=== PATIENT | male | born 1965 | race Caucasian/White ===

== ENCOUNTER → 2018-03-23 | Day surgery (SDC) | payer OTHER ==
[~2018-03-23] VITALS: Ht 182.9 cm; Wt 100.6 kg
[~2018-03-23] MED LIST: BUPIVACAINE/EPINEPHRINE 0.5% PF 10 ML VIAL ONE; CHLORHEXIDINE GLUCONATE 2 % 1 PACK (2 CLOTHS) TOPICAL PRN; DEXAMETHASONE SOD PHOS 4 MG/ML VIAL IV ONE; DO NOT ADM ANY ANTICOAGULANT DRUGS PRN; DOCUSATE SODIUM 100 MG CAP PO ONE; GLYCOPYRROLATE 1 MG/5 ML SYRINGE IV PUSH ONE; INSULIN HUMAN REGULAR 1,000 UNITS/10 ML VIAL SQ PRN; KETOROLAC TROMETHAMINE 30 MG/ML (IVP) VIAL IV PUSH ONE; LACTATED RINGER'S 1000 ML INJ 1,000 ML IV ONE; LACTATED RINGER'S 1000 ML IV PRN; LIDOCAINE 1%/EPINEPHrine 1:100,000 SOLN 20 ML VIAL ONE; LIDOCAINE HCL 1% PF 5 ML SYRINGE OTHER ONE; LORazepam 2 MG/ML VIAL IV ONE; LORazepam 2 MG/ML VIAL ONE; METOPROLOL TARTRATE 25 MG TAB PO PRN; MIDAZOLAM HCL 2 MG/2 ML VIAL ONE; NEOSTIGMINE 5 MG/5 ML SYRINGE IV PUSH ONE; ONDANSETRON HCL 4 MG/2 ML VIAL IV PUSH ONE; POVIDONE IODINE 5% (ANTISEPSIS KIT) 4 APPLICATIONS EACH NARE PRN; PROPOFOL 200 MG/20 ML AMP IV ONE; ROCURONIUM INJ 50 MG/5 ML SYRINGE IV PUSH ONE; SODIUM CHLORID 0.9% 500 ML IV PRN; SUCCINYLCHOLINE CHLORIDE 100 MG/5 ML SYRINGE IV PUSH ONE; VANCOMYCIN 1 GM/200 ML PREMIX IV SCH; VECURONIUM BROMIDE 20 MG VIAL IV ONE; oxyCODONE/ACETAMINOPHEN 5 MG/325 MG TAB PO ONE
[2018-03-23 12:36] LABS: AUTOMATED NEUTROPHIL # 3.1 TH/MM3 (1.8-7.7); BASOPHIL % 0.6 % (0.0-2.0); EOSINOPHIL # 0.3 TH/MM3 (0-0.4); EOSINOPHIL % 4.9 % (0.0-4.0); HEMATOCRIT 43.6 % (39.0-51.0); LYMPH % 28.1 % (9.0-44.0); LYMPHOCYTE # 1.5 TH/MM3 (1.0-4.8); MEAN CELL VOLUME 91.3 FL (80.0-100.0); MEAN CORPUSCULAR HEMOGLOBIN 31.4 PG (27.0-34.0); MEAN CORPUSCULAR HGB CONC 34.4 % (32.0-36.0); MEAN PLATELET VOLUME 7.1 FL (7.0-11.0); MONO % 8.3 % (0.0-8.0); MONOCYTE # 0.4 TH/MM3 (0-0.9); NEUT % 58.1 % (16.0-70.0); PLATELET COUNT 189 TH/MM3 (150-450); RED BLOOD COUNT 4.78 MIL/MM3 (4.50-5.90); RED CELL DISTRIBUTION WIDTH 13.2 % (11.6-17.2); WHITE BLOOD COUNT 5.3 TH/MM3 (4.0-11.0)
[2018-03-23 13:00] LABS: BICARBONATE 24.3 MEQ/L (21.0-32.0); CALCIUM 8.9 MG/DL (8.5-10.1); CREATININE 0.88 MG/DL (0.60-1.30)
--- NOTE | 2018-03-23 16:37 | HHI.PR ---
Immediate Post Op Note Procedure Date: March 23, 2018 Pre Op Diagnosis: umbilical hernia Post Op Diagnosis: same Surgeon: Maciej Carrero MD Research Laboratory Technician(s): lasha Procedure: robotic asst laparoscopic umbilical hernia repair with underlay mesh [id number] proceed Findings: good hemostasis Complications: none Specimen(s) removed: none Estimated blood loss: 15cc Anesthesia: General Drains: None Patient to: PACU Patient Condition: Good Maciej Carrero MD March 23, 2018 16:37
[2018-03-23 18:00] VITALS: BP 119/74; PULSE 71; RESP 20; TEMP 98; O2SAT 96
--- NOTE | 2018-03-24 14:26 | EKG ---
Date Performed: 03/23/2018 Time Performed: 12:13:38 PTAGE: 52 years EKG: Sinus rhythm POSSIBLE INFERIOR MYOCARDIAL INFARCTION , PROBABLY OLD BORDERLINE ECG NO PREVIOUS TRACING DOCTOR: Shaka Driver Interpretating Date/Time 03/24/2018 14:25:04
--- NOTE | 2018-03-24 22:29 | MP ---
cc: Maciej Carrero MD DATE OF OPERATION: 03/23/2018 PREOPERATIVE DIAGNOSIS: Umbilical hernia. POSTOPERATIVE DIAGNOSIS: Umbilical hernia. PROCEDURE PERFORMED: Robotic-assisted laparoscopic umbilical hernia repair with underlay mesh 10 x 15 cm, Proceed. SURGEON: Maciej Carrero MD [employer] CONSULTANT: Yue ANESTHESIA: GETA. INTRAVENOUS FLUIDS: See anesthesia sheet. ESTIMATED BLOOD LOSS: 15 mL DRAINS: None. COMPLICATIONS: None. WOUND CLASSIFICATION: Clean. SPECIMENS: None. FINDINGS: Reducible umbilical hernia. Good hemostasis. INDICATIONS FOR PROCEDURE: The patient is a 52-year-old male who presents with an umbilical hernia. He has had this hernia that has increased in size for several years. Decision was made for operative intervention, including laparoscopic, robotic-assisted hernia repair. DETAILS OF PROCEDURE: The patient was taken to the operating suite, placed in the supine position. He was prepped and draped in the usual sterile fashion after induction of general endotracheal anesthesia. A brief timeout done, stating correct patient, procedure, surgical site, were all in agreement with this. Attention first directed to the left upper quadrant, where a stab/jenny incision was made with an 11 blade. A 5 mm Visiport was used in and around the abdomen safely and cursory inspection, no evidence of injury. Abdomen insufflated to 15 mm of pneumoperitoneum. Two other ports were placed, including a left mid quadrant 12 mm port, followed by a left lower quadrant 8 mm port. The 5 mm port was upsized to an 8 mm port as well. The table was extended further several degrees in order to increase the abdominal wall view. The patient was placed in slight airplane to the right. The robot arms were then docked. I broke scrub and went to the console to continue the hernia repair. The adhesions were taken down to the umbilical hernia, were noted to be minimal amounts of omentum that had adhesions to this. The hernia sac was also excised. A rather large incarceration of periumbilical fat was noted too, this was also removed. The hernia defect was then closed with nonabsorbable, unidirectional #1 V-Loc suture. Following this, an oval Proceed 10 x 15 cm mesh was obtained. This was reduced down, cut several centimeters to size and 2 sutures placed both cephalad and caudad. #2-0 again unidirectional Stratafix sutures. Prior to mesh insertion, the peritoneal layer was dissected down and removed from the right lateral side and dissected on the left lateral side in order to create some flap coverage for the mesh after the mesh was secured. The mesh was placed inside the abdomen and tacked to the anterior abdominal wall. A running quilted-like suture was done to the periphery of the mesh. Mesh noted to stay in place and had good position, completely covering the defect with appropriate overlap. Prior to mesh placement also, the falciform was taken down as well. Next, the peritoneal layer on the left lateral side was approximated over the mesh, again to increase some intra-abdominal mesh coverage. Following completion of this, the robot arms were undocked. I rescrubbed in to remove the contents of the hernia sac and periumbilical fat, placed in EndoCatch bag and removed through the 12 mm port. The 12 mm port was then closed with 0 Vicryl with a suture passer device. Pneumoperitoneum was then removed. Ports were removed as well. Ports were closed with 4-0 Monocryl suture. Local anesthetic injected. All operative instrument counts were correct at the end of the procedure. The patient tolerated the procedure. Patient was extubated and taken stable to PACU. MD ANGEL Anderson/TORO , 10:05 PM , 10:28 PM
== END | disposition home or self-care (01) ==
LOC: HSDC 11:32
PROVIDERS: ATTEND Surgery
DX: K42.9 Umbilical hernia without obstruction or gangrene (principal); Z01.810 Encounter for preprocedural cardiovascular examination; Z01.818 Encounter for other preprocedural examination
CPT/HCPCS: 00750; 49652; 80048; 85025; 93005; J0330; J1100; J1885; J2060; J2250; J2405; J2710; J3010; J3370; J7120